=== PATIENT | female | born 1960 | race Caucasian/White ===

== ENCOUNTER 2021-07-05 07:46 | Emergency (ER) | payer MEDICAID, OTHER ==
[~2021-07-05] VITALS: Ht 162.6 cm; Wt 54.5 kg
[2021-07-05] MEDS ORDERED: metoclopramide 5 mg/ml inj IV ONE (08:15)
[2021-07-05] MEDS ORDERED: cloNIDine 0.1 mg tablet PO ONE ×2 (08:15→10:00)
[2021-07-05] MEDS ORDERED: diphenhydrAMINE 50 mg/ml inj IV ONE (08:15)
[2021-07-05 08:43] LABS: BASOPHILS # (AUTO) 0.1 X10'3 (0-0.2); BASOPHILS % (AUTO) 1.1 % (0-1); EOSINOPHILS # (AUTO) 0.5 X10'3 (0-0.9); EOSINOPHILS % (AUTO) 4.5 % (0-6); HEMATOCRIT 23.3 % (35.0-45.0); LYMPHOCYTES # (AUTO) 1.5 X10'3 (1.1-4.8); LYMPHOCYTES % (AUTO) 13.5 % (21-51); MEAN CORPUSCULAR HEMOGLOBIN 17.5 PG (27.0-31.0); MEAN CORPUSCULAR HGB CONC 29.8 g/dL (33.0-36.5); MEAN CORPUSCULAR VOLUME 58.7 FL (78-98); MEAN PLATELET VOLUME 8.1 FL (7.4-10.4); MONOCYTES # (AUTO) 0.7 X10'3 (0-0.9); NEUTROPHILS # (AUTO) 8.5 X10'3 (1.8-7.7); NEUTROPHILS % (AUTO) 74.9 % (42-75); PLATELET COUNT 330 X10'3 (140-440); RED BLOOD COUNT 3.96 X10'6 (4.20-5.60); RED CELL DISTRIBUTION WIDTH 21.5 % (11.5-14.5); WHITE BLOOD COUNT 11.3 X10'3 (4.5-11.0)
[2021-07-05 08:57] LABS: HEMOGLOBIN 6.9 g/dl (12.0-16.0)
[2021-07-05 08:58] LABS: ALANINE AMINOTRANSFERASE 18 U/L (12-78); ALBUMIN 3.2 G/DL (3.4-5.0); ALKALINE PHOSPHATASE 59 IU/L (46-116); ANION GAP 6 (8-16); ASPARTATE AMINO TRANSFERASE 18 U/L (10-37); BILIRUBIN,TOTAL 0.2 MG/DL (0.1-1.0); BLOOD UREA NITROGEN 8 MG/DL (7-18); BUN/CREATININE RATIO 13.6 (6.6-38.0); CALCIUM 7.8 MG/DL (8.5-10.1); CHLORIDE 103 MMOL/L (99-107); CREATININE 0.59 MG/DL (0.40-0.90); GLUCOSE 113 MG/DL (70-104); POTASSIUM 3.3 MMOL/L (3.5-5.1); SODIUM 137 MMOL/L (135-145); TOTAL CARBON DIOXIDE 27.9 MMOL/L (24-32); TOTAL PROTEIN 6.3 G/DL (6.4-8.2); eGFR > 90 ML/MIN
[2021-07-05 09:44] LABS: ANISOCYTOSIS 3+; HYPOCHROMASIA 2+; MICROCYTOSIS 3+; PLATELET ESTIMATE NORMAL; TEAR DROP CELLS FEW
[2021-07-05 09:45] LABS: POLYCHROMASIA 1+; SCHISTOCYTES FEW; TARGET CELLS FEW
[2021-07-05 09:46] LABS: ELLIPTOCYTES FEW
[2021-07-05] MEDS ORDERED: ketorolac trometh. 30mg/ml inj. IV ONE (10:00)
[2021-07-05] MEDS ORDERED: LORazepam 2 mg/ml vial IV ONE ×2 (10:00→13:05)
[2021-07-05] MEDS ORDERED: morphine 4 MG/ML inj SYRINge IV ONE (11:25)
--- NOTE | 2021-07-05 11:26 | NUR ---
INFORMED THE PROVIDER WHO IS AT THE BEDSIDE THAT PT IS CONFUSED AND TRYING TO LOOK FOR THINGS PER MD WE ARE GOING TO PAGE TELE NEURO FOR HER.
--- NOTE | 2021-07-05 11:38 | NUR ---
DR NORIEGA SPOKE TO NEUROLIGIST AT THIS TIME ,INFORMED THE NEUROLOGIST REGARDING PT CONDITION AND CONFUSION,PT HAS NO OCCULOMETER RESPONSE OF HER RGT EYE THE EYE BALL NOT MOVING TO RGT SIDE WHILE EXAMINING THE PT.RECOMMENDATION TO TRANSFER THE PT OUT FOR NEUROSURGERY.
[2021-07-05 12:20] LABS: CLARITY,URINE SLIGHTLY CLOUDY (Clear); COLOR,URINE STRAW (Yellow); GLUCOSE, URINE NEGATIVE (Neg); KETONES,URINE 15 mg/dl (Neg); LEUKOCYTE ESTERASE ,URINE NEGATIVE (Neg); NITRITES, URINE NEGATIVE (Neg); OCCULT BLOOD,URINE NEGATIVE (Neg); PROTEIN,URINE NEGATIVE (Neg); UA COLLECTION TYPE VOIDED; UROBILINOGEN,URINE 0.2 E.U/dL (0.2-1.0)
--- NOTE | 2021-07-05 12:22 | NUR ---
NOTIFIED THE CHARGE EARLIER THAT PT NEEDS A SITTER ,PT HAS PULLED HER IV OUT ,TAKING EVERTHING OFF ,WALKING AROUND IN ROOM ,WANDERING ,CONFUSED. PER LAURIE CHARGE NURSE ,NO SITTER IS PROVIDED BY HOSPITAL DUE TO LOW STAFFING.
[2021-07-05 12:25] LABS: MUCUS STRANDS FEW /LPF (Neg); SQUAMOUS EPITHELIAL CELL,UR FEW /LPF (FEW)
[2021-07-05 12:26] LABS: BACTERIA,URINE 1+ /HPF (Neg); RBC,URINE 0-2 /HPF (0-2); WBC,URINE 0-4 /HPF (0-4)
[2021-07-05] MEDS ORDERED: haloperidol lactate 5mg/ml inj IM ONE (13:05)
[2021-07-05] MEDS ORDERED: LIDOcaine 1% 30ml preserv. free vial IJ ONE (13:15)
[2021-07-05] MEDS ORDERED: niCARDipine-NS 40mg/200ml IVPB 200 ML IV SCH (13:20)
[2021-07-05 15:00] VITALS: BP 145/73
--- NOTE | 2021-07-05 15:13 | NUR ---
[facility] ACCEPTED PATIENT. MD ORTEGA GOING TO ROOM# 289B [facility] CALLED @ 1509 NOT AT LEVELS - WILL CALL BACK WITH A ETA
[2021-07-05 15:51] LABS: APPEARANCE,CSF BLOODY; CSF SUPERNATANT COLOR XANTHOCHROMIC
[2021-07-05 15:52] LABS: CSF RBC 479500 /CU MM (0); CSF VOLUME 5.4 ML; TUBE# COUNTED 4
[2021-07-05 15:55] LABS: CSF WBC CT 613 /CU MM (0-5); EOSINOPHILS,CSF 2 %; LYMPHOCYTES,CSF 10 % (40-80); MONOCYTES,CSF 2 % (15-45); NEUTRO,CSF 86 % (0-6)
[2021-07-05 16:04] LABS: GLUCOSE,CSF 23 MG/DL (40-75)
[2021-07-05 16:10] LABS: % IRON SATURATION 2 % (11-46); IRON 11 UG/DL (49-151); TOTAL IRON BINDING CAPACITY 524 UG/DL (259-388)
[2021-07-05 16:18] LABS: TOTAL PROTEIN,CSF > 750 MG/DL (15-45)
--- NOTE | 2021-07-05 16:18 | NUR ---
primary nurse is busy with other patient julia i called report and given report to [facility] report given to susan rn ,informed about pt condition informed that pt is confused and on nicardipine drip 5 mg /hr ,bp came down to 138/71 from 217 systolic.pt aware of pt condition,discussed all the lab value,ct scan result and lumbar puncture results .also informed the primary nurse allan.
--- NOTE | 2021-07-05 16:50 | NUR ---
call calista at [phone] when pt get transfered to [facility].
--- NOTE | 2021-07-05 17:56 | NUR ---
PT REPROT GIVEN TO EMS THE TRAVELER NURSE BLANCA WHO HAD THIS PT I HER SECTION ,STATED SHE IS NOT TOO FAMILIAR WITH PT ,THAT IS WHY I HAVE GIVEN REPORT TO THE EMS .PT IS IN WORSENING CONDITION,PT IS MORE CONFUSED AND LETHERGIC THEN BEFORE .CALLED KRYSTAL AT [phone] REGARDING PT TRANSFER TO [facility].
[2021-07-11 16:43] LABS: CRYPTOCOCCUS ANTIGEN, CSF Negative (Negative)
[2021-07-14 12:38] LABS: CSF WEST NILE VIRUS, IGG Positive (Negative)
[2021-07-14 17:53] LABS: CSF WEST NILE VIRUS, IGM Negative (Negative)
[2021-07-18 11:52] LABS: HSV 1 PCR NEG; HSV 2 PCR NEG
== END 2021-07-05 17:56 | disposition hospice, inpatient (51) ==
LOC: ER 07:50
DX: G91.9 Hydrocephalus, unspecified (principal); Z20.822 Contact with and (suspected) exposure to COVID-19; R41.82 Altered mental status, unspecified; R51.9 Headache, unspecified; F17.210 Nicotine dependence, cigarettes, uncomplicated
CPT/HCPCS: 36415; 62270; 70450; 80053; 81001; 82945; 83540; 83550; 84157; 85008; 85025; 85610; 86592; 86788; 86789; 87015; 87070; 87529; 87635; 87899; 89051; 96365; 96366; 96375; 96376; 99285; C9803; J1200; J1630; J1885; J2060; J2270; J2765